=== PATIENT | female | born 2000 | race Caucasian/White ===

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

== ENCOUNTER 2020-04-16 18:33 | Emergency (ER) | payer OTHER ==
[~2020-04-16] VITALS: Ht 172.7 cm; Wt 52.2 kg
[2020-04-16 19:45] VITALS: BP 91/48
== END 2020-04-16 19:45 | disposition home or self-care (01) ==
LOC: M.ERS 18:33
DX: M25.531 Pain in right wrist (principal); F42.9 Obsessive-compulsive disorder, unspecified; Z91.010 Allergy to peanuts; Z88.0 Allergy status to penicillin; W22.8XXA Striking against or struck by other objects, initial encounter; Y93.89 Activity, other specified; Y92.481 Parking lot as the place of occurrence of the external cause; Y99.9 Unspecified external cause status